=== PATIENT | male | born 1955 | race Caucasian/White ===

== ENCOUNTER 2019-09-11 07:43 | Emergency (ER) | payer MEDICARE, SELFPAY ==
[2019-09-11 07:46] VITALS: BP 179/91; PULSE 76; RESP 20; TEMP 36.4; O2SAT 96
--- NOTE | 2019-09-11 08:26 | W.ED.GENAD ---
Discharge Plan Disposition Patient Disposition: HOME Condition: Good Discharge Details Chief Complaint: RashLesion Clinical Impression: Tick bite ED Provider: Merle Mahajan Home Meds and New Rx's Prescriptions: No Action No Known Home Meds RF: 0 Discharge Instructions Instructions: Lyme Disease (ED), Tick Bite (ED) Additional Instructions: Wash area of tick bite with soap and water once or twice daily. Apply topical antibiotic ointment to the wound. Observe for any signs or symptoms of Lyme as discussed. Please review information provided regarding Lyme. You received doxycycline 200 mg today for attempted prevention of tick illness. Recheck with primary care doctor or return to the emergency room for any signs or concerns of ill feeling, headache, joint pain, rashes. Return to the emergency room for any worsening or concerns sooner if needed Medical Decision Making 64-year-old [place] presents with a tick bite in the right wrist. Easily removed at the bedside with a tick lovett. Patient has no signs or symptoms of Lyme at this time although we did discuss signs and symptoms of Lyme at length for which he should have very close observation in the next several weeks. Discussed prophylactic dose of antibiotic which patient consents to. Discussed follow-up testing with PCP if needed if indicated. Discussed return precautions to the emergency room. The patient was stable and requested discharge. Prior to discharge, my usual and customary return precautions were reviewed with the patient - this included follow-up instructions and reasons to return to the Emergency Department if conditions worsens, does not improve as expected, or other new concerns arise. HPI General Date/Time Provider Initiated Documentation: 09/11/19 08:25. HPI Narrative: 64-year-old man presents for a tick bite on his right wrist. Patient reports he noted a small lump under his watch band. He believes tick bite was in the last 1 to 2 days. Patient denies any ill feelings or Lyme symptoms at this time. No other concerns or complaints. Tick in place he has made no attempt to remove it Related Data Home Medications Medication Instructions Recorded Confirmed Unknown [No Known Home Meds] 09/11/19 09/11/19 Allergies Allergy/AdvReac Type Severity Reaction Status Date / Time No Known Allergies Allergy Unverified 09/11/19 07:49 General Stated Complaint: GenMedical CESAR: 4 Review of Systems All systems reviewed & are unremarkable except as noted in HPI and below Constitutional Constitutional: Denies chills, Denies fatigue, Denies fever(s), Denies headache(s) and Denies malaise ENT Ears, Nose, Mouth, and Throat: Denies headache(s) Musculoskeletal Musculoskeletal: Denies arthralgias Integumentary/Breasts Skin/Breast: Reports erythema and Denies rash Neurologic Neurologic: Denies headache(s) Endocrine Endocrine: Denies fatigue [facility] Social History Smoking/Tobacco Use Status: Never Alcohol Intake: never Do you feel safe at home: Yes Exam Narrative Exam Narrative: CONST: Healthy appearing patient, in no acute distress. Well hydrated. Alert and alert. MUSCULOSKELETAL: Normal Gait. FROM of all extremities. SKIN: Normal. Dry. No rashes. Tick embedded in right wrist, easily removed with tick lovett. No residual tick parts embedded. NEURO: Alert and awake. Speech clear. PSYCH: Normal affect. Cooperative. Course Vital Signs Vital signs: Vital Signs Temperature 36.4 C L 09/11/19 07:46 Pulse 76 09/11/19 07:46 Respiratory Rate 20 09/11/19 07:46 Blood Pressure 179/91 H 09/11/19 07:46 Pulse Oximetry 96 09/11/19 07:46 Temperature 36.4 C L 09/11/19 07:46 Temperature Source Skin 09/11/19 07:46 Pulse 76 09/11/19 07:46 Respiratory Rate 20 09/11/19 07:46 Respiratory Effort 09/11/19 07:50 Blood Pressure 179/91 H 09/11/19 07:46 Blood Pressure Position Sitting 09/11/19 07:46 Pulse Oximetry 96 09/11/19 07:46 Oxygen Delivery Method Room Air 09/11/19 07:46 Oxygen Flow Rate 0 09/11/19 07:46 Pain Level 2 09/11/19 07:46
[2019-09-11] MEDS: Doxycycline Hyclate 100 MG CAP 200 MG PO (08:35)
== END 2019-09-11 08:45 | disposition home or self-care (01) ==
LOC: ER 08:41
PROVIDERS: Emergency Provider Physician Assistant; PCP Internal Medicine
DX: S60.861A Insect bite (nonvenomous) of right wrist, initial encounter (principal); W57.XXXA Bitten or stung by nonvenomous insect and other nonvenomous arthropods, initial encounter
CPT/HCPCS: 99283

== ENCOUNTER 2023-07-21 09:14 | Day surgery (SDC) | payer MEDICARE, SELFPAY ==
--- NOTE | 2023-07-20 19:41 | HPE_ITS ---
Assessment and Plan Assessment and plan (1) Posterior subcapsular age-related cataract of left eye: Status: Acute Assessment and plan: Assessment: Visually significant cataract, left eye. Plan: Cataract extraction with lens implantation, left eye. (2) Cortical age-related cataract, left eye: Status: Acute Assessment and plan: Assessment: Visually significant cataract, left eye. Plan: Cataract extraction with lens implantation, left eye (3) Nuclear age-related cataract, left eye: Status: Acute Assessment and plan: Assessment: Visually significant cataract, left eye. Plan: Cataract extraction with lens implantation, left eye History of Present Illness History of Present Illness Chief Complaint: Decreased vision both eyes Narrative: The patient is a 67-year-old male with history of progressive decreased vision in his left eye. He notes significant difficulty with glare when driving at [place]. 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 On examination he was noted to have nuclear and posterior subcapsular cataract in the left eye with visual acuity of 20/40, with glare disability as well. The option of cataract surgery was offered to the patient and he felt he was symptomatic enough that he wished to proceed. Review of Systems All systems reviewed & are unremarkable except as noted in HPI and below PFSH All Active Problems Posterior subcapsular age-related cataract of left eye (Acute) Cortical age-related cataract, left eye (Acute) Nuclear age-related cataract, left eye (Acute) Medical History Cataract HLD (hyperlipidemia) HTN (hypertension) Poison [place] Pt. stated he got into poison [place] on monday his right arm is plastered with it, a bunch of red spots all over He is treating with why hydrocortisone, and nothing is open or weeping currently Skin lesion Surgical History History of Mohs surgery for squamous cell carcinoma of skin Hx of biopsy Social History Smoking/Tobacco Use Status: Never Smoking risk assessment performed?: Yes Alcohol Intake: current Alcohol Intake frequency: holidays/special occasions only Drug use: Never Substance use type: does not use Housing: house Do you feel safe at home: Yes Do you feel safe in your relationship?: Yes Meds Allergies and Home Medications Allergies Allergy/AdvReac Type Severity Reaction Status Date / Time amlodipine Allergy Intermediate Angioneurotic Unverified 07/21/23 09:34 edema doxazosin Allergy Intermediate Skin Rash Unverified 07/21/23 09:34 losartan Allergy Intermediate Chest Pain Unverified 07/21/23 09:34 Home Medications Medication Instructions Recorded Confirmed Type aspirin 81 mg capsule,delayed 81 mg PO DAILY 07/19/23 History release Exam Eyes Other: Most recent ophthalmic examination revealed a corrected visual acuity of 20/40 OD, 20/50 OS. Extraocular motility was normal. Intraocular pressure was 14 OU. Slit-lamp examination is significant for a mild nuclear cataract in the right eye. In the left eye there is a mild nuclear cataract with posterior subcapsular cataract as well and mild cortical changes. Funduscopic examination shows disc cupping of 0.45 OU with normal vessels, macula, peripheral retina and vitreous. Resp Auscultation: clear to auscultation bilaterally Cardio Rate: regular rate Rhythm: regular rhythm
[2023-07-21 09:30] VITALS: BP 152/95; PULSE 76; RESP 16; TEMP 36.5; O2SAT 97
[2023-07-21] MEDS: Tropicam./Phenyleph. (1/2.5%) 5 ML BTL OS ×3 (09:44→09:57)
--- NOTE | 2023-07-21 09:54 | W.ANESPRE ---
General Info Date of Service Date Performed: 07/21/23 Height: 6 ft 3 in Weight: 94.6 kg Body Mass Index (BMI): 26.0 Surgical Procedure: Operation Date: 07/21/23 11:25 Proposed Procedure Side Surgeon p Cataract Extraction with IOL Implant Left Demetrius Hernandez MD Meds Allergies and Home Medications Allergies Allergy/AdvReac Type Severity Reaction Status Date / Time amlodipine Allergy Intermediate Angioneurotic Unverified 07/21/23 09:34 edema doxazosin Allergy Intermediate Skin Rash Unverified 07/21/23 09:34 losartan Allergy Intermediate Chest Pain Unverified 07/21/23 09:34 Home Medication Medication Instructions Recorded aspirin 81 mg capsule,delayed 81 mg PO DAILY 07/19/23 release Current Visit Medications: Current Medications Generic Name Dose Route Start Last Admin Trade Name Freq PRN Reason Stop Dose Admin Acetaminophen 1,000 mg 07/21/23 06:00 Acetaminophen 500 Mg Tab PO 08/20/23 05:59 Q4H PRN PRN Balanced Salt Solution 500 ml 07/21/23 06:00 Balanced Salt Soln.-Plus 500 Ml Bag OP 08/20/23 05:59 DIRECTED SONJA Miscellaneous Medication 0 ml 07/21/23 06:00 Prednisolone 1%, Moxifloxacin 0.5%, Nepafenac 0.1% 5ml Btl OS 08/20/23 05:59 DIRECTED SONJA Miscellaneous Medication 0 ml 07/21/23 06:00 07/21/23 09:49 Tropicam./Phenyleph. (1/2.5%) 5 Ml Btl OS 08/20/23 05:59 1 drp DIRECTED SONJA Administration Tetracaine HCl 0 ml 07/20/23 10:00 Tetracaine 0.5% 5 Ml Btl OS 08/19/23 09:59 DIRECTED SONJA PFSH Active Problems Active Problems: Problem Status Onset Code Posterior subcapsular age-related cataract of left eye H25.042 Cortical age-related cataract, left eye H25.012 Nuclear age-related cataract, left eye H25.12 Medical History Medical History Cataract HLD (hyperlipidemia) HTN (hypertension) Poison [place] Pt. stated he got into poison [place] on monday his right arm is plastered with it, a bunch of red spots all over He is treating with why hydrocortisone, and nothing is open or weeping currently Skin lesion Surgical History Surgical History History of Mohs surgery for squamous cell carcinoma of skin Hx of biopsy Tobacco Smoking/Tobacco Use Status: Never Alcohol Alcohol Intake: current Alcohol intake frequency: holidays/special occasions only Substance Use Substance use: Never Substance use type: does not use Vital Signs and Lab Results Vital Signs Most Recent Vital Signs in EMR: Most Recent Vital Signs Temp Pulse Resp BP Pulse Ox 36.5 C 76 16 152/95 H 97 07/21/23 09:30 07/21/23 09:30 07/21/23 09:30 07/21/23 09:30 07/21/23 09:30 Lab Results Blood Type / Crossmatch: No Data to Display Complete Blood Count: No Data to Display Complete Metabolic Panel: No Data to Display Liver Function Panel: No Data to Display Coagulation Panel: No Data to Display Cardiac Panel: No Data to Display Arterial Blood Gas: No Data to Display Venous Blood Gas: No Data to Display Pancreas Panel: No Data to Display Thyroid Panel: No Data to Display Infectious Disease: No Data to Display Blood Cultures: No Data to Display Toxicology Panel: No Data to Display Anesthesia Assessment and Plan Anesthesia History Personal History: No History of Anesthesia Complications Family History: No Family History of Anesthesia Complications Exercise Tolerance Exercise Tolerance: Metabolic Equivalents>4 Pertinent Negatives Pertinent Negatives: No Symptoms of GERD, No Major Cardiovascular Symptoms or Complaints, No Major Pulmonary Symptoms or Complaints and No History of CVA/TIA Cardiac & Pulmonary Exam Cardiac Exam: Normal S1/S2 Heart Sounds Pulmonary Exam: Clear Bilateral Breath Sounds Implantable Cardiac Device Does patient have a Pacemaker or an ICD?: No Airway Exam Known Difficult Airway: No Mallampati Class: 2 Mouth Opening: Normal (> 3cm) Thyromental Distance: Greater than 3 cm Neck Range of Motion: Full ROM Neck Circumference: Normal Teeth Condition: Normal Dentition ASA Classification ASA Score: ASA 1 Emergency Case?: No NPO Status NPO Status: NPO Clears >2 hours, Solids >8 hours Anesthesia Plan Resuscitation Status: Full Code Anesthesia Technique: MAC Anesthesia Airway Planned: Natural Airway Monitors Used: Standard Monitors
[2023-07-21 10:25] VITALS: BMI 26.0
[2023-07-21] MEDS: Balanced Salt Soln.-PLUS 500 ML BAG OP (10:45)
[2023-07-21] MEDS: Duovisc Viscoelastic System EACH 1 EACH (10:47)
[2023-07-21] MEDS: Lidocaine 1% Pres-Free 5 ML VIAL (10:47)
[2023-07-21] MEDS: Phenylephrine/Lidocaine (15/10) MG/ML 1 ML VIAL (10:48)
[2023-07-21] MEDS: Povidone-Iodine Ophth 30 ML BTL (10:49)
[2023-07-21 10:54] VITALS: BP 159/94; PULSE 74; RESP 18; TEMP 36.5; O2SAT 98
--- NOTE | 2023-07-21 10:55 | W.PM.DSUDISC ---
Date of service: 07/21/23 Time of Service: 10:55 Discharge Plan Disposition Patient Disposition: Home Discharge Details Attending Provider: Demetrius Hernandez Primary Care Provider: Zain Shabazz Home Meds and New Rx's Prescriptions: No Action aspirin 81 mg Capsule,Delayed Release(Dr/Ec) 81 mg PO DAILY Discharge Instructions Stand Alone Forms: Post-op Topical Cataract, Orquidea Mao (DSU) Discharge Orders Discharge Orders: Discharge Order (Routine); Ordered 07/21/23 Ordered By: Demetrius Hernandez DS: Diagnosis Discharge Diagnosis (1) Posterior subcapsular age-related cataract of left eye: Status: Resolved (2) Cortical age-related cataract, left eye: Status: Resolved (3) Nuclear age-related cataract, left eye: Status: Resolved
--- NOTE | 2023-07-21 10:56 | W.PM.OP ---
Date of service: 07/21/23 Time of Service: 10:56 Operative Note Operative Note PRE-OP DIAGNOSIS: Nuclear/cortical/posterior subcapsular cataract, left eye POST-OP DIAGNOSIS: same PROCEDURE: Cataract extraction using phacoemulsification with intraocular lens implant, left eye SURGEON: Demetrius Hernandez ANESTHESIA TYPE: Local By Surgeon and MAC Refer to Anesthesia Record PATHOLOGY: none sent COMPLICATIONS: None Patient was transported to: same day Patient's condition: stable Implants: Cortez Clareon [id number] Indications: Progressive decreased vision due to cataract, left eye Procedure Description: CATARACT SURGERY OPERATIVE REPORT PREOPERATIVE DIAGNOSIS: Nuclear/cortical/posterior subcapsular cataract, left eye POSTOPERATIVE DIAGNOSIS: Same OPERATION: Cataract extraction using phacoemulsification with posterior chamber intraocular lens implant, left eye. IOL: IOL Graphic Design Professor/Model: Cortez Clareon [id number] IOL Power: + 14.5 diopters IOL Serial Number: [id number] Optic Diameter: 6.0mm Haptic/Overall Diameter: 13.0mm PHACO INFO: Cortez Acetylon Pharmaceuticalsurion Vision System with OZil and Active Fluidics Cumulative Dispersed Energy (CDE): 6.80 seconds SURGEON: Demetrius Hernandez MD, LISBETH ANESTHESIA: Monitored Anesthesia Care (MAC), with local sub-tenon's anesthetic infiltration COMPLICATIONS: None SPECIMENS: None INDICATIONS FOR PROCEDURE: Patient is a 68-year-old male with history of diminished visual acuity in his left eye secondary to the development of nuclear/cortical/posterior subcapsular cataract. He is significantly symptomatic that he desires cataract surgery and attempt to improve and maximize his vision. See office notes for detailed information. PROCEDURE: The correct surgical eye was identified and marked as the left eye and the pupil was dilated in the preoperative area using mydriatics and cycloplegics. The dilated pupil size was 8.0 mm. The patient elected to proceed without oral sedation. The patient was brought to the operating room where cardiopulmonary monitoring was instituted and surgical time-out was performed, confirming the correct operative eye and IOL power. Topical anesthesia was administered and ophthalmic povidone-iodine 5% was instilled into the conjunctival fornices. The amita-ocular area was prepped with Betadine 10% solution and draped in the usual sterile fashion for intraocular surgery, including an aperture drape. A Tegaderm transparent film dressing was cut in half and used to cover the lashes and lid margins. Care was taken to sequester the lashes and lid margins under the Tegaderm dressing. A lid speculum was placed between the lids of the operative eye and the Cortez LuxOR Revalia operating microscope was maneuvered into position. Julia scissors were then used to make a conjunctival buttonhole approximately 6mm posterior to the limbus in the inferonasal quadrant. Blunt dissection was carried out to expose bare sclera, and a blunt-tipped sub-tenon?s anesthesia cannula was introduced and passed posteriorly along the globe where non-preserved plain lidocaine was injected into posterior sub-Tenon?s space. A sideport knife was used to make a paracentesis port. Intraocular phenylephrine/lidocaine was injected into the anterior chamber. The anterior chamber was then filled with viscoelastic. A keratome knife was used construct a two-plane clear corneal tunnel extending 2.0mm into clear cornea. A flap was raised on the anterior capsule and capsulorhexis forceps were used to complete a continuous curvilinear capsulorhexis of 5.5 mm. Balanced salt solution was then used to perform cortical cleaving hydrodissection and nuclear hydrodelineation until the lens could be freely rotated within the capsular bag. The lens nucleus was then disassembled and removed within the capsular bag and iris plane using phacoemulsification. Residual cortical material was removed using the irrigation/aspiration handpiece. The posterior capsule was carefully polished to remove as much residual lens epithelial cells as safely possible. The capsular bag was then inflated and the anterior chamber deepened with viscoelastic. The lens implant described above was inserted into the capsular bag using the Cortez Autonome Injector. A Kuglen hook was used to dial the IOL into position. Residual viscoelastic was then removed first from posterior to the IOL, then from the anterior chamber using the I/A handpiece. The lens implant was noted to center nicely within the capsular bag. The incisions were stromally hydrated, and the anterior chamber was reformed using BSS. Then 0.5cc of moxifloxacin 1.0mg/ml were injected into the capsular bag and anterior chamber. The incisions were checked with a Weck spear and found to be secure. Several drops of ophthalmic povidone-iodine 5% were then applied to the eye followed by two drops of Imprimis combination prednisolone/moxifloxacin/nepafenac solution. The drapes were removed and a clear plastic protective eye shield was placed over the eye. The patient was then returned to Same Day Surgery in stable condition.
--- NOTE | 2023-07-21 11:19 | W.ANESPOSTOP ---
Postoperative Evaluation Date, Time and Location Date Performed: 07/21/23 Time Performed: 11:01 Patient Location: Day Surgery Unit Vital Signs Most Recent Imported Vital Signs: Most Recent Vital Signs Temp Pulse Resp BP Pulse Ox 36.5 C 74 18 159/94 H 98 07/21/23 10:54 07/21/23 10:54 07/21/23 10:54 07/21/23 10:54 07/21/23 10:54 Pain Score Most Recent Pain Score: Most Recent Pain Score Pain Level 0 07/21/23 10:54 Assessment Mental Status: Awake (Alert & Oriented to Patient Baseline) Airway and Respiratory Function: Patent airway with normal (patient baseline) respiratory exam Cardiovascular Function: Hemodynamically Stable Hydration Status: Adequately Hydrated Nausea & Vomiting: No Nausea or Vomiting Pain: Pt. Denies Any Pain Peripheral Nerve Block: Patient did not receive a nerve block
== END 2023-07-21 11:23 | disposition home or self-care (01) ==
LOC: SUR 09:15
PROVIDERS: PCP Internal Medicine; Visit Provider Ophthalmology
PROC: (CPT 66984; principal; 2023-07-21 11:15)
DX: H25.042 Posterior subcapsular polar age-related cataract, left eye (principal); H25.012 Cortical age-related cataract, left eye; H25.12 Age-related nuclear cataract, left eye
CPT/HCPCS: 66984; V2632